=== PATIENT | male | born 1950 | race Two or more races ===

== ENCOUNTER 2024-07-10 12:33 | Inpatient (IN) | payer MEDICARE, SELFPAY ==
[2024-07-10] VITALS (34 sets, daily range): BP systolic 99–125; BP diastolic 60–79; PULSE 97–144; TEMP 36.7–37.2; O2SAT 96–100; BMI 23.8; BMI 24.1
--- NOTE | 2024-07-10 12:53 | XR_ITS ---
The [address] [address] Patient Name: SARAVANAN CLIFTON MRN: [id number] date: 1950 Sex: M Assigned Patient Location: ER Current Patient Location: ED.MAIN Accession/Order Number: [id number] Exam Date: 07/10/2024 13:10 Report Date: 07/10/2024 14:38 At the request of: TEODORO ECKERT Procedure: XR foot LT min 3V EXAM: XR foot LT min 3V HISTORY: Foot infection, rule out air in tissue COMPARISON: None. TECHNIQUE: AP, oblique, lateral view left foot. FINDINGS: Focal lucency which projects in the area of the second / third toe suggesting soft tissue gas. Not definitely confirmed well localized on the lateral view, exact location indeterminate. No adjacent bony abnormality or destruction or fracture. Lucencies within the plantar soft tissues from the metatarsal level the midfoot likely fat probable soft tissue gas not excluded.. Deformity fourth and fifth metatarsals likely related to old healed fractures, correlate for previous trauma. I do not see evidence of an acute fracture or healing fracture. Degenerative changes seen in the toes. Faint vascular soft tissue calcification distal lower leg posteriorly. XR/XR foot LT min 3V IMPRESSION: 1. Focal gas collection projects in the soft tissues near the second and third toes, exact location not clearly defined. Suggestive of soft tissue gas from infection. Could be confirmed with CT. 2. No adjacent bony erosion or destruction or evidence of osteomyelitis. No acute fracture seen. 3. Fourth and fifth metatarsal deformity likely old, correlate for history of previous trauma. 4. Plantar soft tissue lucencies, fat versus soft tissue gas.. Electronically authenticated by: ROBBIN MADRID Date: 07/10/2024 14:38
--- NOTE | 2024-07-10 12:53 | XR_ITS ---
The [address] [address] Patient Name: SARAVANAN CLIFTON MRN: [id number] date: 1950 Sex: M Assigned Patient Location: ER Current Patient Location: ER Accession/Order Number: [id number] Exam Date: 07/10/2024 13:10 Report Date: 07/10/2024 14:39 At the request of: TEODORO ECKERT Procedure: XR chest 1V EXAM: XR chest 1V HISTORY: SOB COMPARISON: None. TECHNIQUE: AP upright chest x-ray. FINDINGS: These is rotated. Basilar markings are prominent without focal consolidation. /Atelectasis/scarring versus pneumonitis. Cardiomediastinal contour is prominent accentuated by magnification. Costophrenic angles are not well-defined, cannot exclude small pleural effusion effusions. No pneumothorax. XR/XR chest 1V IMPRESSION: Prominent basilar markings, question atelectasis/scarring versus pneumonitis. Poorly defined costophrenic angles. Electronically authenticated by: ROBBIN MADRID Date: 07/10/2024 14:39
--- NOTE | 2024-07-10 12:53 | ECG_ITS ---
The [facility] Test Date: 2024-07-10 Pat Name: SARAVANAN CLIFTON Department: Room: - Gender: Male Delivery Consultant: : 1950 Requested By: Order Number: [id number] Reading MD: EMILY NAIR Measurements Intervals [place] Rate: 131 P: -[id number] OK: -[id number] QRS: 6 QRSD: 88 T: -8 QT: 322 QTc: 399 Interpretive Statements 66189 Atrial fibrillation with rapid ventricular response [id number] depression, probably digitalis effect 9150 abnormal ECG No previous ECG available for comparison Electronically Signed On 07-11-2024 7:42:29 EST by EMILY NAIR
--- NOTE | 2024-07-10 12:55 | ED_ITS ---
HPI HPI - General Adult General Chief complaint: Wound/Laceration Stated complaint: FOOT INFECTION SYMPTHOMS Time Seen by Provider: 07/10/24 12:44 Source: patient Mode of arrival: Wheelchair Limitations: no limitations History of Present Illness HPI narrative: 74-year-old male presents for a wound on his left foot. It has been draining and he saw operational assistant yesterday who told him to go to the hospital yesterday but he came today. He was started on doxycycline yesterday and has had 2 doses. He was also told that his heart rate was fast and he should have that checked out. He was found to be tachycardic and irregular. He has no history of atrial fibrillation. He reports having a heart catheterization last year that did not show any significant blockage. No fever or vomiting. Related Data Home Medications ?Medication ?Instructions ?Recorded ?Confirmed L.acidophilus-L.paracasei-B.bifidum-S.thermophl 1 cap PO DAILY 07/10/24 07/10/24 8 billion cell capsule (RisaQuad) doxycycline hyclate 100 mg capsule 100 mg PO BID 07/10/24 07/10/24 ferrous sulfate 325 mg (65 mg 325 mg PO DAILY 07/10/24 07/10/24 iron) tablet (Feosol) furosemide 40 mg tablet 40 mg PO DAILY 07/10/24 07/10/24 gabapentin 300 mg capsule 300 mg PO Q12H 07/10/24 07/10/24 oxycodone-acetaminophen 5 mg-325 1 tab PO Q8H 07/10/24 07/10/24 mg tablet pantoprazole 40 mg tablet,delayed 40 mg PO DAILY 07/10/24 07/10/24 release potassium 20 mg chewable tablet 10 mg PO DAILY 07/10/24 07/10/24 tramadol 50 mg tablet 50 mg PO DAILY 07/10/24 07/10/24 Allergies Allergy/AdvReac Type Severity Reaction Status Date / Time diazepam (From Valium) AdvReac Mild Anaphylaxis Verified 07/10/24 12:41 Opioid HPI Opioid Management Most Recent Opioid Data: Last Pain Scale 8 07/10/24 13:18 07/10/24 Last ED Pain Assessment 07/10/24 13:18 Review of Systems ROS Narrative A ten point review of systems is negative except as noted above. Exam Narrative Exam Narrative: Nurses note and vital signs reviewed and patient is not hypoxic. General: The patient appears well and in no apparent distress. Patient is resting comfortably on cart. Skin: Warm, dry, no pallor noted. There is no rash noted. Head: Normocephalic, atraumatic Eye: Normal conjunctiva, no drainage Ears, Nose, Mouth, and Throat: oral mucosa is moist. Nares patent. Cardiovascular: Tachycardic and irregular Respiratory: Patient is in no distress, no accessory muscle use, lungs are clear to auscultation, no wheezing, rales or rhonchi Back: non-tender GI: Soft and nontender Musculoskeletal: The left foot is examined. There is an open wound on the dorsum of the foot that is draining purulent material. Erythema is present also on the dorsum. He has several wounds on the plantar aspect of his foot as well, 1 on the distal plantar aspect and another at the base of his toes. Neurological: A&O, normal speech Psychiatric: Cooperative Constitutional Vital Signs, click to edit/add: Last Vital Signs Temp 98.3 F 07/10/24 12:41 Pulse 125 H 07/10/24 12:41 Resp 18 07/10/24 12:41 BP 117/72 07/10/24 12:41 Pulse Ox 98 07/10/24 13:17 O2 Del Method Room Air 07/10/24 13:17 Course Vital Signs Vital signs: Vital Signs Temperature 98.3 F 07/10/24 12:41 Pulse Rate 125 H 07/10/24 12:41 Respiratory Rate 18 07/10/24 12:41 Blood Pressure 117/72 07/10/24 12:41 Pulse Oximetry 97 07/10/24 12:41 Oxygen Delivery Method Room Air 07/10/24 12:41 Temperature 98.3 F 07/10/24 12:41 Pulse Rate 125 H 07/10/24 12:41 Respiratory Rate 18 07/10/24 12:41 Blood Pressure 117/72 07/10/24 12:41 Pulse Oximetry 98 07/10/24 13:17 Oxygen Delivery Method Room Air 07/10/24 13:17 Medical Decision Making MDM Narrative Medical decision making narrative: The patient presents with left foot cellulitis and draining wound on the dorsum of his left foot. Culture of that was taken as well as blood cultures and he was given IV Zosyn and vancomycin. X-ray report is pending from the radiologist. The patient also presents with new onset A-fib with RVR. He was given IV Cardizem bolus and placed on a drip and his heart rate has come down. He has no personal history of A-fib and is not on any blood thinners. He will be admitted to the ICU. Case also discussed with Dr. Ellis. Differential Diagnosis Differential Diagnosis: Cellulitis, abscess, osteomyelitis Lab Data Lab results reviewed: Yes I reviewed the patient's lab results Labs: Lab Results 07/10/24 Range/Units 13:05 WBC 20.7 H (4.0-11.0) 10^3/uL RBC 3.15 L (4.70-6.10) 10^6/uL Hgb 8.8 L (14.0-18.0) g/dL Hct 27.9 L (42.0-54.0) % MCV 88.6 (80.0-94.0) fL MCH 27.9 (25.9-34.0) pg MCHC 31.5 (29.9-35.2) g/dL RDW 17.8 H (11.0-15.0) % Plt Count 706 H (150-450) 10^3/uL MPV 10.4 (9.5-13.5) fL Seg Neuts % (Manual) 90.0 H (43.0-75.0) Lymphocytes % (Manual) 3.0 L (20.5-60.0) % Monocytes % (Manual) 4.0 (1.7-12.0) % Eosinophils % (Manual) 2.0 (0.9-7.0) % Basophils % (Manual) 1.0 (0.2-2.0) % Neutrophils # (Manual) 18.63 H (1.4-6.5) 10^3/uL Lymphocytes # (Manual) 0.62 L (1.20-3.80) 10^3/uL Monocytes # (Manual) 0.82 H (0.30-0.80) 10^3/uL Eosinophils # (Manual) 0.41 (0.00-0.70) 10^3/uL Basophils # (Manual) 0.20 H (0.00-0.10) 10^3/uL Hypochromasia 2+ Anisocytosis 1+ Ovalocytes 1+ [place] Cells 1+ Schistocytes 1+ ESR 58 H (<=20) mm/hr Sodium 137 (136-145) mmol/L Potassium 3.7 (3.5-5.1) mmol/L Chloride 101 (98-107) mmol/L Carbon Dioxide 25.3 (21.0-32.0) mmol/L Anion Gap 14.4 BUN 12.0 (7.0-18.0) mg/dL Creatinine 1.06 (0.70-1.30) mg/dL Est GFR ( Amer) >60 (>=60 mL/min/1.73m^2) Est GFR (Non-Af Amer) >60 (>=60 mL/min/1.73m^2) BUN/Creatinine Ratio 11.3 Glucose 118 H (74-106) mg/dL Calcium 8.1 L (8.5-10.1) mg/dL Troponin I High Sens 9.3 (4.0-76.1) pg/mL C-Reactive Protein 8.06 H (<=0.50) mg/dL Imaging Data Foot x-ray: My impression: No definite osteomyelitis or air in the soft tissue ECG Data Attestation: I personally reviewed and interpreted this ECG as follows: (EKG on my interpretation shows atrial fibrillation with RVR) Critical Care Time Critical Care Time Critical Care Time: Yes Total Critical Care Time: 35 Attestation: Due to the high probability of sudden and clinically significant deterioration in the patient's condition he/she required the highest level of my preparedness to intervene urgently I provided critical care time including documentation time, medication orders and management, reevaluation, vital sign assessment, ordering and reviewing of lab tests, ordering and reviewing of x-ray studies, and admission orders. Aggregate critical care time is 35 minutes including only time during which I was engaged in work directly related to his/her care and did not include time spent treating other patients simultaneously. Discharge Plan Discharge Chief Complaint: Wound/Laceration Clinical Impression: Cellulitis of foot, left Patient Disposition: Admitted As Inpatient Time of Disposition Decision: 14:31 Condition: Good
[2024-07-10 13:20] LABS: Hematocrit 27.9 % (42.0-54.0); Hemoglobin 8.8 g/dL (14.0-18.0); Mean Corpuscular HGB Conc 31.5 g/dL (29.9-35.2); Mean Corpuscular Hemoglobin 27.9 pg (25.9-34.0); Mean Corpuscular Volume 88.6 fL (80.0-94.0); Mean Platelet Volume 10.4 fL (9.5-13.5); Platelet Count 706 10^3/uL (150-450); Red Blood Count 3.15 10^6/uL (4.70-6.10); Red Cell Distribution Width 17.8 % (11.0-15.0); White Blood Count 20.7 10^3/uL (4.0-11.0)
[2024-07-10 13:39] LABS: Erythrocyte Sedimentation Rate 58 mm/hr (<=20)
[2024-07-10 13:41] LABS: Anion Gap 14.4; BUN Creatinine Ratio 11.3; C Reactive Protein 8.06 mg/dL (<=0.50); Calcium 8.1 mg/dL (8.5-10.1); Carbon Dioxide 25.3 mmol/L (21.0-32.0); Chloride 101 mmol/L (98-107); Estimated GFR (African America >60 (>=60 mL/min/1.73m^2); Estimated GFR (Non-African Ame >60 (>=60 mL/min/1.73m^2); Glucose 118 mg/dL (74-106); Potassium 3.7 mmol/L (3.5-5.1); Sodium 137 mmol/L (136-145); Troponin I High Sensitivity 9.3 pg/mL (4.0-76.1)
[2024-07-10] MEDS: DILTIAZEM HCL 25 MG/5 ML VIAL 10 MG IV (13:49)
[2024-07-10] MEDS: PIPERACILLIN SODIUM/TAZOBACTAM 3.375 GM in 0.9 % SODIUM CHLORIDE 50 ML IV (14:00)
[2024-07-10 14:04] LABS: Eosinophils Absolute Manual 0.41 10^3/uL (0.00-0.70); Lymphocytes Absolute Manual 0.62 10^3/uL (1.20-3.80); Monocytes Absolute Manual 0.82 10^3/uL (0.30-0.80); Segmented Neut Absolute Manual 18.63 10^3/uL (1.4-6.5)
[2024-07-10 14:05] LABS: Anisocytosis 1+; Hypochromasia 2+
[2024-07-10 14:06] LABS: Burr Cells 1+; Ovalocytes 1+; Schistocytes 1+
[2024-07-10] MEDS: VANCOMYCIN HCL 1,500 MG in 0.9 % SODIUM CHLORIDE 500 ML 250 MG IV (14:25)
[2024-07-10] MEDS: dilTIAZem HCL 125 MG in 0.9 % SODIUM CHLORIDE 100 ML IV (14:32)
--- NOTE | 2024-07-10 15:24 | CT_ITS ---
The [address] [address] Patient Name: SARAVANAN CLIFTON MRN: [id number] date: 1950 Sex: M Assigned Patient Location: ER Current Patient Location: ER Accession/Order Number: [id number] Exam Date: 07/10/2024 15:35 Report Date: 07/10/2024 16:27 At the request of: ADILENE CASTELLON Procedure: CT foot LT wo con EXAM: CT foot LT wo con HISTORY: Gas seen on left foot X-ray COMPARISON: Left foot x-ray 07/10/2024 TECHNIQUE: CT left foot noncontrast. Axial scans with reformatted coronal sagittal images. Individualized radiation dose reduction used for this exam FINDINGS: There are punctate gas collection within the plantar soft tissues near the second and third toes measuring several millimeters. Punctate gas in the superficial tissues dorsal aspect in the area of the fourth and fifth those is equivocal. The large gas collection on plain films is not confirmed to be within the soft tissues on CT. That lucency could be incidental external gas between the toes. There is no subcutaneous gas extending from the metatarsals to the midfoot as question on x-ray.. There is diffuse edema. Fourth and fifth metatarsal deformity appears old consistent with prior trauma and healed fractures. No bony erosion, periosteal reaction or other evidence of osteomyelitis. No fracture or healing subacute fracture seen. Degenerative changes in the toes. CT/CT foot LT wo con IMPRESSION: 1. There are punctate several millimeter gas collections in the soft tissues near the second and third toes not well demonstrated on plain films. The larger gas collection seen in this area plain films is not confirmed to be within the subcutaneous tissues on CT. No subcutaneous gas in the plantar soft tissues as questioned on x-ray. 2. Diffuse edema. 3. Old trauma fourth and fifth metatarsals. 4. No evidence of osteomyelitis, healing fracture or other acute bony abnormality. Electronically authenticated by: ROBBIN MADRID Date: 07/10/2024 16:27
--- NOTE | 2024-07-10 15:28 | PM.HP ---
HPI H&P: HPI History of Present Illness Chief complaint: FOOT INFECTION SYMPTHOMS Narrative: Patient is a 74 y.o white male with past medical history of Peripheral Neuropathy who has underwent several toe amputations of the right foot (last june 01, 2024 at [facility], Dr. Whalen) and has wound nurse that comes to the house, iron deficiency anemia (suppose to have a bone marrow biopsy done by Dr. 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 He apparently seen a blanchard grinder operator, Dr. Chery yesterday, and was started on Doxycycline and was instructed to go to the ER for IV antibiotics by his wound nurse today. He has no known history of diabetes. He also notes history of cardiomyopathy and pulmonary edema, had a heart cath 1 year ago that was normal. Upon presentation to the ER, his Heart Rate was also in the 130's and was found to be in Afib with RVR. He was given Cardizem bolus and was started on Cardizem drip. He has no prior history of Afib. ER findings: Left foot X-ray shows focal gas collection in the soft tissues Near the 2nd and 3rd toes, WBC's 20.7, Hb 8.8, Platelets 706, ESR 58, CRP 8.06, Trop 9.3 and Cr 1.06; patient was given Zosyn and Vancomycin for left foot cellulitis with ulceration/abscess and given Cardizem bolus for new onset Afib with RVR Patient also hypotensive with BP, 99/63, HR 125, 98% on RA, Lactate 1.6 Opioid HPI Opioid Management Most Recent Pain and Opioid Data: Last Pain Scale 5 07/10/24 18:00 07/10/24 Last Pain Assessment 07/10/24 18:00 Last ED Pain Assessment 07/10/24 13:18 Last ORT Total Score 0 07/10/24 17:28 07/10/24 Last ORT Risk Category Low Risk 07/10/24 17:28 07/10/24 Review of Systems ROS Narrative ROS: a complete review of systems were reviewed with patient and are positive as below or listed in History of Chief Complaint. General: fever, chills, no night sweats Head: no headache, trauma, visual changes, nausea or vomiting Skin: left foot sore, ulcer and odor, right foot chronic wounds with history of amputations Eyes: no blurriness of vision Ears: no reported hearing loss, vertigo, earache, or tinnitus Throat: no sore throat, hoarseness, swelling of neck, or tongue pain Heart: no chest pain Lungs: no shortness of breath or cough GI: no diarrhea or vomiting/nausea Urinary: no urinary urgency, frequency or pain Neuro: numbness or tingling bilateral feet HEM: no bleeding issues or bruising ENDO: no thyroid problems Psych: no anxiety or depression [facility] Medical History (Updated 07/10/24 @ 17:07 by Florence Angel RN) Hip fracture ?S72.009A - Fracture of unspecified part of neck of unspecified femur, initial encounter for closed fracture (ICD-10) Pulmonary hypertension ?I27.20 - Pulmonary hypertension, unspecified (ICD-10) Iron deficiency anemia ?D50.9 - Iron deficiency anemia, unspecified (ICD-10) GERD without esophagitis ?K21.9 - Gastro-esophageal reflux disease without esophagitis (ICD-10) Peripheral neuropathy ?G62.9 - Polyneuropathy, unspecified (ICD-10) Social History Highest level of school completed/degree received: Associate degree: occupational, technical, vocational program Little interest or pleasure in doing things: not at all Feeling down, depressed, or hopeless: not at all Meds Home Medications and Allergies Home Medications ?Medication ?Instructions ?Recorded ?Confirmed ?Type L.acidophilus-L.paracasei-B.bifidum-S.thermophl 1 cap PO DAILY 07/10/24 07/10/24 History 8 billion cell capsule (RisaQuad) doxycycline hyclate 100 mg capsule 100 mg PO BID 07/10/24 07/10/24 History ferrous sulfate 325 mg (65 mg 325 mg PO DAILY 07/10/24 07/10/24 History iron) tablet (Feosol) furosemide 40 mg tablet 40 mg PO Q12H 07/10/24 07/10/24 History gabapentin 300 mg capsule 300 mg PO Q12H 07/10/24 07/10/24 History oxycodone-acetaminophen 5 mg-325 1 tab PO Q8H 07/10/24 07/10/24 History mg tablet pantoprazole 40 mg tablet,delayed 40 mg PO DAILY 07/10/24 07/10/24 History release potassium 20 mg chewable tablet 10 mg PO DAILY 07/10/24 07/10/24 History tramadol 50 mg tablet 50 mg PO DAILY 07/10/24 07/10/24 History Allergies Allergy/AdvReac Type Severity Reaction Status Date / Time diazepam (From Valium) AdvReac Mild Anaphylaxis Verified 07/10/24 12:41 Exam Narrative Exam Narrative: General: Patient is alert, and oriented to person, place and time with normal affect, proper hygiene Skin: right foot with dorsal surface ulceration behind the 2nd and 3rd toe with central necrosis, dorsum of the foot shows also ulceration behind 2nd and 3rd toes open area/ulceration; erythema of the leg up to just below the knee; multiple ecchymosis on the forearms Head: atraumatic, acephalic Eyes: PERRLA, no nystagmus present, conjunctiva clear, no scleral icterus Ears: normal gross auditory acuity Nose: symmetric, no discharge, no maxillary or frontal sinus tenderness Mouth/Throat: no erythema, exudate, or tonsillar enlargement, normal dentition Neck: no masses palpated, normal thyroid Heart: irregular rate and rhythm, no murmurs/rubs/gallops Lungs: no audible wheezes, crackles and normal breath sounds all lung musa Abdomen: Normal audible bowel sounds, mild distension, No palpable masses, no organomegaly, no rebound/guarding/ or rigidity; umbilical hernia reducible Musculoskeletal: muscle atrophy noted, ROM is limited due to being in hospital bed Neuro: CN II-X grossly intact Constitutional Vital Signs, click to edit/add: Last Vital Signs Temp 98.3 F 07/10/24 12:41 Pulse 125 H 07/10/24 12:41 Resp 18 07/10/24 12:41 BP 99/63 07/10/24 14:32 Pulse Ox 98 07/10/24 13:17 O2 Del Method Room Air 07/10/24 13:17 Results Labs Labs: Short CBC 07/10/24 Range/Units 13:05 WBC 20.7 H (4.0-11.0) 10^3/uL Hgb 8.8 L (14.0-18.0) g/dL Hct 27.9 L (42.0-54.0) % Plt Count 706 H (150-450) 10^3/uL BMP 07/10/24 13:05 Sodium 137 Potassium 3.7 Chloride 101 Carbon Dioxide 25.3 BUN 12.0 Creatinine 1.06 Glucose 118 H Calcium 8.1 L Assessment and Plan Assessment and Plan (1) Sepsis: Assessment and Plan: Patient with Tachycardia, hypotension, leukocytosis, with known area of infection (left foot) but lactate normal, SIRS criteria. High suspicion of sepsis that is causing new onset Afib with RVR. Treat infection with Vancomycin and Zosyn until cultures result. Blood and urine cultures also obtained. Qualifiers: Sepsis acute organ dysfunction status: without acute organ dysfunction Sepsis type: sepsis due to unspecified organism Qualified Code(s): A41.9 - Sepsis, unspecified organism (2) Cellulitis of foot, left: Assessment and Plan: start antibiotics, X-ray concerning for possible gas formation, will check CT of the foot to rule in/out gas gangrene, consult to Podiatry. Patient may need transferred acutely if needing Emergent surgery. elevated ESR, CRP and WBC's, start Vancomycin and Zosyn. (3) Foot ulcer with necrosis of muscle: Assessment and Plan: see #2, sounds like acute on chronic in nature Qualifiers: Laterality: left Qualified Code(s): L97.523 - Non-pressure chronic ulcer of other part of left foot with necrosis of muscle (4) New onset a-fib: Assessment and Plan: most likely secondary to sepsis and foot infection, could also be due to doxycycline? or history of recent alcohol abstinence. Troponin negative, continue to trend, check proBNP, ordered ECHO but will not get over the weekend, Chest X-ray showed no acute pulmonary edema, but patient with heart history. Continue daily lasix. Given Cardizem bolus, Will continue with Cardizem drip and started on Therapeutic Lovenox at 85mg IM BID. Normal renal function. Will check magnesium, TSH, lipids, ha1c (5) Peripheral neuropathy: Assessment and Plan: continue gabapentin, oxycodone and tramadol as needed Qualifiers: Peripheral neuropathy type: polyneuropathy, unspecified Qualified Code(s): G62.9 - Polyneuropathy, unspecified (6) GERD without esophagitis: Assessment and Plan: continue protonix (7) Iron deficiency anemia: Assessment and Plan: hemoglobin is 8.8, Will check Coags, will consider type and Cross as surgery may be in his future Qualifiers: Iron deficiency anemia type: unspecified iron deficiency Qualified Code(s): D50.9 - Iron deficiency anemia, unspecified Plan Patient is a full code Therapeutic Lovenox Patient is inpatient and expected to cross 2 midnights for hospital necessary care to treat his Sepsis and foot infection. May need transfer to acute Care facility if Gas Gangrene present on CT for emergent surgery.
[2024-07-10 15:41] LABS: Lactate/Lactic Acid 1.6 mmol/L (0.4-2.0)
[2024-07-10 16:41] LABS: Magnesium 1.5 mg/dL (1.8-2.4); TSH W/ REFLEX FT4 4.518 uIU/mL (0.358-3.740)
[2024-07-10 17:08] LABS: Free T4 1.37 ng/dL (0.76-1.46)
[2024-07-10] MEDS: ENOXAPARIN SODIUM 100 MG/ML SYRINGE 90 MG SUBQ (18:19)
[2024-07-10] MEDS: OXYCODONE HCL/ACETAMINOPHEN 5MG/325MG 1 TAB PO (19:53)
[2024-07-10] MEDS: GABAPENTIN 300 MG CAPSULE PO (20:25)
[2024-07-10] MEDS: MAGNESIUM SULFATE IN WATER 4 GM/100 ML PIGGYBACK IV (20:25)
[2024-07-11] VITALS (92 sets, daily range): BP systolic 101–123; BP diastolic 48–79; PULSE 70–185; TEMP 36.5–37.4; O2SAT 91–95
[2024-07-11] MEDS: dilTIAZem HCL 125 MG in 0.9 % SODIUM CHLORIDE 100 ML 10 MG IV (05:45)
[2024-07-11 05:50] LABS: Basophils Absolute Auto 0.2 10^3/uL (0.0-0.1); Basophils Percent Auto 1.1 % (0.2-2.0); Eosinophils Absolute Auto 0.3 10^3/uL (0.0-0.7); Eosinophils Percent Auto 2.3 % (0.9-7.0); Hemoglobin 7.5 g/dL (14.0-18.0); Immature Granulocytes Abs Auto 0.24 10^3/uL (0.00-0.03); Immature Granulocytes Pct Auto 1.8 % (0.0-0.5); Lymphocytes Absolute Auto 0.6 10^3/uL (1.2-3.8); Lymphocytes Percent Auto 4.8 % (20.5-60.0); Mean Corpuscular HGB Conc 32.6 g/dL (29.9-35.2); Mean Corpuscular Hemoglobin 27.8 pg (25.9-34.0); Mean Corpuscular Volume 85.2 fL (80.0-94.0); Mean Platelet Volume 9.5 fL (9.5-13.5); Monocytes Percent Auto 7.3 % (1.7-12.0); Neutrophils Absolute Auto 10.9 10^3/uL (1.4-6.5); Neutrophils Percent Auto 82.7 % (43.0-75.0); Platelet Count 657 10^3/uL (150-450); Red Cell Distribution Width 17.6 % (11.0-15.0); White Blood Count 13.2 10^3/uL (4.0-11.0)
[2024-07-11] MEDS: ENOXAPARIN SODIUM 100 MG/ML SYRINGE 90 MG SUBQ ×2 (05:55→17:25)
[2024-07-11] MEDS: OMEPRAZOLE 40 MG CAPSULE.DR PO (05:55)
[2024-07-11 06:01] LABS: Magnesium 2.2 mg/dL (1.8-2.4)
[2024-07-11 06:06] LABS: Estimated Average Glucose 100 mg/dL; Glycohemoglobin A1C 5.1 % (4.5-6.2)
[2024-07-11 06:08] LABS: Alanine Aminotransferase 16 U/L (16-63); Albumin Globulin Ratio 0.6; Albumin Level 2.2 g/dL (3.4-5.0); Alkaline Phosphatase 114 U/L (46-116); Anion Gap 12.5; Aspartate Amino Transferase 27 U/L (15-37); BUN Creatinine Ratio 11.1; Calcium 7.9 mg/dL (8.5-10.1); Carbon Dioxide 24.7 mmol/L (21.0-32.0); Chloride 105 mmol/L (98-107); Estimated GFR (African America >60 (>=60 mL/min/1.73m^2); Estimated GFR (Non-African Ame >60 (>=60 mL/min/1.73m^2); Globulin 3.7 g/dL; Glucose 100 mg/dL (74-106); Potassium 3.2 mmol/L (3.5-5.1); Sodium 139 mmol/L (136-145); Total Protein 5.9 g/dL (6.4-8.2)
[2024-07-11 06:10] LABS: Chol HDL Ratio 3.2; Cholesterol 76 mg/dL (<=200); HDL Cholesterol 24 mg/dL (40-60); Triglycerides 50 mg/dL (<=150); Troponin I High Sensitivity <4.0 pg/mL (4.0-76.1)
[2024-07-11 06:12] LABS: INR 1.56; Prothrombin Time 15.8 sec (9.0-11.6)
[2024-07-11 06:19] LABS: Partial Thromboplastin Time 42.5 sec (22.3-36.2)
--- NOTE | 2024-07-11 07:28 | P.PN_ITS ---
Progress Note: Subjective Subjective Interval history: Patient reports he had a good night's rest. He denies any fevers or chills. No chest pain. Patient's HR still >100 and on Cardizem drip. Podiatry seen him this morning. Recommending amputation of the 3rd toe. Given his new onset Afib and need for further cardiac work up I have discussed case with Dr. Ellis, patient and feel that's it's patient's best interest for transfer to [facility] where patient sees all his consultants including his prior yard coupler who has performed all his other surgeries and also he will need cardiology consult. I have also explained patient's Hemoglobin dropped to 7.5, He is amendable to transfusion. He has had one prior without issues. I will transfuse with 1 unit PRBC's Exam Narrative Exam Narrative: General: Patient is alert, and oriented to person, place and time with normal affect, proper hygiene Skin: right foot with dorsal surface ulceration behind the 2nd and 3rd toe with central necrosis, dorsum of the foot shows also ulceration behind 2nd and 3rd toes open area/ulceration; erythema of the leg up to just below the knee; multiple ecchymosis on the forearms Head: atraumatic, acephalic Eyes: PERRLA, no nystagmus present, conjunctiva clear, no scleral icterus Ears: normal gross auditory acuity Nose: symmetric, no discharge, no maxillary or frontal sinus tenderness Mouth/Throat: no erythema, exudate, or tonsillar enlargement, normal dentition Neck: no masses palpated, normal thyroid Heart: irregular rate and rhythm, no murmurs/rubs/gallops Lungs: no audible wheezes, crackles and normal breath sounds all lung musa Abdomen: Normal audible bowel sounds, mild distension, No palpable masses, no organomegaly, no rebound/guarding/ or rigidity; umbilical hernia reducible Musculoskeletal: muscle atrophy noted, ROM is limited due to being in hospital bed Neuro: CN II-X grossly intact Constitutional Vital Signs, click to edit/add: Last Vital Signs Temp 98.4 F 07/11/24 04:00 Pulse 115 H 07/11/24 06:00 Resp 16 07/11/24 04:00 BP 113/59 07/11/24 05:45 Pulse Ox 93 L 07/11/24 04:00 O2 Del Method Room Air 07/10/24 17:28 Progress Note: Objective Labs Labs: Short CBC 07/10/24 07/11/24 Range/Units 13:05 05:39 WBC 20.7 H 13.2 H (4.0-11.0) 10^3/uL Hgb 8.8 L 7.5 L (14.0-18.0) g/dL Hct 27.9 L 23.0 L* (42.0-54.0) % Plt Count 706 H 657 H (150-450) 10^3/uL BMP 07/10/24 07/11/24 13:05 05:39 Sodium 137 139 Potassium 3.7 3.2 L Chloride 101 105 Carbon Dioxide 25.3 24.7 BUN 12.0 11.0 Creatinine 1.06 0.99 Glucose 118 H 100 Calcium 8.1 L 7.9 L Liver Function 07/11/24 Range/Units 05:39 Total Bilirubin 1.0 (0.2-1.0) mg/dL AST 27 (15-37) U/L ALT 16 (16-63) U/L Alkaline Phosphatase 114 (46-116) U/L Albumin 2.2 L (3.4-5.0) g/dL Progress Note: A&P Assessment and Plan (1) Sepsis: Assessment and Plan: Patient with Tachycardia, hypotension, leukocytosis, with known area of infectio n (left foot) but lactate normal, does meet SIRS criteria. High suspicion of sepsis/foot infection that is causing new onset Afib with RVR but have to rule out other causes. Treat infection with Vancomycin and Zosyn until wound cultures result. Blood and urine cultures also obtained. Qualifiers: Sepsis acute organ dysfunction status: without acute organ dysfunction Sepsis type: sepsis due to unspecified organism Qualified Code(s): A41.9 - Sepsis, unspecified organism (2) Cellulitis of foot, left: Assessment and Plan: contiue antibiotics, X-ray concerning for possible gas formation, CT of the foot showed some gas formation overlying the area of ulceration, consult to Podiatry for further plan of care. Patient may need transferred acutely if needing Emergent surgery over weekend. elevated ESR, CRP and WBC's, continue Vancomycin and Zosyn (3) Foot ulcer with necrosis of muscle: Assessment and Plan: see #2, sounds acute on chronic in nature as patient was being seen at home by wound nurse and following with closely with [facility], Dr. Whalen Qualifiers: Laterality: left Qualified Code(s): L97.523 - Non-pressure chronic ulcer of other part of left foot with necrosis of muscle (4) New onset a-fib: Assessment and Plan: most likely secondary to sepsis and foot infection, could also be due to recent alcohol abstinence, undiagnosed hypothyroidism or acute symptomatic anemia. Troponins negative, proBNP elevated, ordered ECHO but will not get over the weekend, will be tomorrow, Cards consult tomorrow, start PO coreg and hope to start PO cardizem and wean of drip today, Chest X-ray showed no acute pulmonary edema, but patient with heart history, right sided heart failure and pulmonary hypertension per patient. Continue daily lasix 40mg BID, monitor strict I&O's. Given Cardizem bolus, Will continue with Cardizem drip and started on Therapeutic Lovenox at 85mg IM BID. Normal renal function. (5) Peripheral neuropathy: Assessment and Plan: continue gabapentin, oxycodone and tramadol as needed Qualifiers: Peripheral neuropathy type: polyneuropathy, unspecified Qualified Code(s): G62.9 - Polyneuropathy, unspecified (6) GERD without esophagitis: Assessment and Plan: continue protonix (7) Iron deficiency anemia: Assessment and Plan: hemoglobin is 7.5, will consider 1 unit PRBC's today, may be contributing to Afib, type and Cross done Qualifiers: Iron deficiency anemia type: unspecified iron deficiency Qualified Code(s): D50.9 - Iron deficiency anemia, unspecified (8) Hypokalemia: Assessment and Plan: increase Klor Con to 20mEQ BID (9) Hypothyroidism (acquired): Assessment and Plan: start levothyroxine 25mcg daily (10) Chronic right-sided CHF (congestive heart failure): Assessment and Plan: see above. does not appear fluid overloaded. continue lasix Plan Patient is a full code Therapeutic Lovenox podiatry consult today, start Coreg, hope to wean of drip, transfuse 1 unit PRBC's, possible [facility] transfer
[2024-07-11] MEDS: OXYCODONE HCL/ACETAMINOPHEN 5MG/325MG 1 TAB PO ×2 (07:36→16:04)
[2024-07-11] MEDS: LEVOTHYROXINE SODIUM 25 MCG TABLET PO (09:13)
[2024-07-11] MEDS: FUROSEMIDE 40 MG TABLET PO (09:13)
[2024-07-11] MEDS: POTASSIUM CHLORIDE 10 MEQ ER TABLET 20 MEQ PO (09:13)
[2024-07-11] MEDS: GABAPENTIN 300 MG CAPSULE PO (09:13)
[2024-07-11] MEDS: CARVEDILOL 6.25 MG TABLET PO (09:13)
[2024-07-11] MEDS: FERROUS SULFATE 325 MG TABLET PO (09:13)
--- NOTE | 2024-07-11 11:06 | P.CN_ITS ---
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 He relates that he did have a similar issue on his right foot which required amputation in May. He has been under the care of of Dr Martinez and Dr Chery for his feet and was seen by Dr Chery on Friday. it was recommended he present to the ER for further work-up and (who is at bedside) stated we just couldn't imagine sitting in the [facility] ER for 8 hours so we decided to come here despite all of his treating physicians being in [place]. Upon presentation to [facility], he was found to be in A-fib with RVR, pulmonary edema, hypokalemia, anemic with significant leukocytosis and elevation in inflammatory markers. X-rays demonstrated intact cortices with no evidence of acute osteomyelitis. Apparent air in the soft tissues on x-ray was further evaluated with CT scan and seem to correlate with the ulcerations and there was no subcutaneous gas which extended proximally to the midfoot. Patient was started on broad-spectrum antibiotics (vancomycin/Zosyn) and admitted to the ICU under the hospitalist care. Blood and wound cultures are pending. I was consulted for possible surgical management of the patient's left foot infection. cc:: CC: Keisha Small DO Review of Systems ROS Status of ROS 10 or more systems reviewed and unremark able except as noted in history and below Gastrointestinal Reports: nausea Integumentary/Breast Reports: redness, skin tenderness and sores [facility] Medical History (Updated 07/11/24 @ 11:23 by Nimesh Ellis DPM) Chronic right-sided CHF (congestive heart failure) ?I50.812 - Chronic right heart failure (ICD-10) Hip fracture ?S72.009A - Fracture of unspecified part of neck of unspecified femur, initial encounter for closed fracture (ICD-10) Pulmonary hypertension ?I27.20 - Pulmonary hypertension, unspecified (ICD-10) Iron deficiency anemia ?D50.9 - Iron deficiency anemia, unspecified (ICD-10) GERD without esophagitis ?K21.9 - Gastro-esophageal reflux disease without esophagitis (ICD-10) Peripheral neuropathy ?G62.9 - Polyneuropathy, unspecified (ICD-10) Social History Highest level of school completed/degree received: Associate degree: occupational, technical, vocational program Little interest or pleasure in doing things: not at all Feeling down, depressed, or hopeless: not at all Meds Home Medications and Allergies Home Medications ?Medication ?Instructions ?Recorded ?Confirmed ?Type L.acidophilus-L.paracasei-B.bifidum-S.thermophl 1 cap PO DAILY 07/10/24 07/10/24 History 8 billion cell capsule (RisaQuad) doxycycline hyclate 100 mg capsule 100 mg PO BID 07/10/24 07/10/24 History ferrous sulfate 325 mg (65 mg 325 mg PO DAILY 07/10/24 07/10/24 History iron) tablet (Feosol) furosemide 40 mg tablet 40 mg PO Q12H 07/10/24 07/10/24 History gabapentin 300 mg capsule 300 mg PO Q12H 07/10/24 07/10/24 History oxycodone-acetaminophen 5 mg-325 1 tab PO Q8H 07/10/24 07/10/24 History mg tablet pantoprazole 40 mg tablet,delayed 40 mg PO DAILY 07/10/24 07/10/24 History release potassium 20 mg chewable tablet 10 mg PO DAILY 07/10/24 07/10/24 History tramadol 50 mg tablet 50 mg PO DAILY 07/10/24 07/10/24 History Allergies Allergy/AdvReac Type Severity Reaction Status Date / Time diazepam (From Valium) AdvReac Mild Anaphylaxis Verified 07/10/24 12:41 Exam Narrative Exam Narrative: Skin: Ulceration noted at the plantar aspect of the third toe which probes deeply and seems to communicate to ulcerations noted plantar and dorsal aspect of third metatarsal. Ulcers probe to the base of the third toe proximal phalanx and to the third metatarsal. There is scant purulence noted at the base of the third toe but no fluctuance with deeper palpation to the forefoot and midfoot. Neuro: Absent protective and vibratory sensation Vascular: Pedal pulses are palpable. Absent digital hair. Erythema noted around the wounds Musculoskeletal: Left foot has contractures of all 5 toes with dorsal dislocation of the third toe and plantar prominence of the third metatarsal head which corresponds to the ulceration. Forefoot deformity is nonreducible. Ankle joint dorsiflexion is to neutral but not past Constitutional Vital Signs, click to edit/add: Last Vital Signs Temp 99.4 F 07/11/24 07:50 Pulse 127 H 07/11/24 07:50 Resp 18 07/11/24 07:50 BP 119/63 07/11/24 07:50 Pulse Ox 92 L 07/11/24 07:50 O2 Del Method Room Air 07/10/24 17:28 Results Labs Labs: Short CBC 07/10/24 07/11/24 Range/Units 13:05 05:39 WBC 20.7 H 13.2 H (4.0-11.0) 10^3/uL Hgb 8.8 L 7.5 L (14.0-18.0) g/dL Hct 27.9 L 23.0 L* (42.0-54.0) % Plt Count 706 H 657 H (150-450) 10^3/uL BMP 07/10/24 07/11/24 13:05 05:39 Sodium 137 139 Potassium 3.7 3.2 L Chloride 101 105 Carbon Dioxide 25.3 24.7 BUN 12.0 11.0 Creatinine 1.06 0.99 Glucose 118 H 100 Calcium 8.1 L 7.9 L Liver Function 07/11/24 Range/Units 05:39 Total Bilirubin 1.0 (0.2-1.0) mg/dL AST 27 (15-37) U/L ALT 16 (16-63) U/L Alkaline Phosphatase 114 (46-116) U/L Albumin 2.2 L (3.4-5.0) g/dL Assessment and Plan Assessment and Plan (1) Sepsis: Qualifiers: Sepsis acute organ dysfunction status: without acute organ dysfunction Sepsis type: sepsis due to unspecified organism Qualified Code(s): A41.9 - Sepsis, unspecified organism (2) Cellulitis of foot, left: (3) Foot ulcer with necrosis of muscle: Qualifiers: Laterality: left Qualified Code(s): L97.523 - Non-pressure chronic ulcer of other part of left foot with necrosis of muscle (4) New onset a-fib: (5) Hypokalemia: (6) Hypothyroidism (acquired): (7) Acute osteomyelitis of left foot: Plan Patient seen and evaluated at bedside. Patient is extremely medically complicated with multiple acute and chronic issues which places him at high risk for serious complication including loss of limb or life. I explained that his combination of neuropathy with deformity has likely led to the development of this ulceration and his neuropathy with his medical comorbidities have prevented his ability to heal the wound. Now with a serious infection patient will require at minimum amputation of his left third toe which given his medical status would likely need to be staged. Given his medical status and pending cardiology workup surgical intervention tomorrow may have to be performed under local however patient expresses concern that he much prefers to be sedated. I told him that I would discuss with anesthesia but am not optimistic. I also explained that given the current situation the [facility] in no surgery is to be performed on the weekend. I will make him n.p.o. after midnight but if it is determined that no sedation or general anesthesia may be safely used and he has to undergo surgery under only local anesthesia then he may eat. Call with updates.
[2024-07-11] MEDS: PIPERACILLIN SODIUM/TAZOBACTAM 3.375 GM in 0.9 % SODIUM CHLORIDE 50 ML IV (13:39)
[2024-07-11 13:52] LABS: Bilirubin Urine NEGATIVE (NEGATIVE); Blood Urine TRACE-I (NEGATIVE); Clarity Urine CLEAR (CLEAR); Color Urine YELLOW (YELLOW); Glucose Urine UA NEGATIVE (NEGATIVE); Ketones Urine NEGATIVE (NEGATIVE); Leukocyte Esterase Urine NEGATIVE (NEGATIVE); Nitrite Urine POSITIVE (NEGATIVE); Protein Urine NEGATIVE (NEG/TRACE); Urobilinogen Urine 0.2 EU/dL (0.2-1.0); pH Urine 5.5 (5.0-9.0)
[2024-07-11 14:05] LABS: Bacteria Urine SMALL #/HPF (NONE SEEN); Cast Seen? SEEN #/LPF (NONE SEEN); Crystals Seen? None Seen #/HPF (None Seen); Hyaline Casts Urine RARE; Mucus Urine NONE SEEN (NONE SEEN); RBC Urine 0-2 #/HPF (0-2); Squamous Epithelial Cell Urine RARE #/LPF (NONE/RARE); Urine Culture Indicated YES; WBC Urine 0-2 #/HPF (NONE SEEN)
[2024-07-11] MEDS: DILTIAZEM HCL 300 MG CAP.ER.24H PO (14:18)
[2024-07-11 14:58] LABS: Hematocrit 25.4 % (42.0-54.0); Hemoglobin 8.4 g/dL (14.0-18.0)
[2024-07-11] MEDS: VANCOMYCIN HCL 1,250 MG in 0.9 % SODIUM CHLORIDE 250 ML 166.667 MG IV (17:25)
[2024-07-11] MEDS: ACETAMINOPHEN 500 MG TABLET 1000 MG PO (19:28)
--- NOTE | 2024-07-12 07:51 | P.DS_ITS ---
DS: Providers Provider Date of admission: 07/10/24 17:14 Primary care physician: Non-Staff PhysicianMD Attending physician on admission: Keisha Small Consults: 07/10/24 15:18 Consult to Podiatry Routine Consulting Provider: Nimesh Ellis Reason for consultation: left foot infection Has provider been notified: Yes 07/11/24 07:38 Consult to Cardiology Routine Reason for consultation: new onset Afib with RVR Has provider been notified: No Discharging clinician: Keisha Small DS: Diagnosis Discharge Diagnosis (1) Sepsis: Qualifiers: Sepsis type: sepsis due to unspecified organism Sepsis acute organ dysfunction status: without acute organ dysfunction Qualified Code(s): A41.9 - Sepsis, unspecified organism (2) Cellulitis of foot, left: (3) Foot ulcer with necrosis of muscle: Qualifiers: Laterality: left Qualified Code(s): L97.523 - Non-pressure chronic ulcer of other part of left foot with necrosis of muscle (4) New onset a-fib: (5) Peripheral neuropathy: Qualifiers: Peripheral neuropathy type: polyneuropathy, unspecified Qualified Code(s): G62.9 - Polyneuropathy, unspecified (6) GERD without esophagitis: (7) Iron deficiency anemia: Qualifiers: Iron deficiency anemia type: unspecified iron deficiency Qualified Code(s): D50.9 - Iron deficiency anemia, unspecified (8) Hypokalemia: (9) Hypothyroidism (acquired): (10) Chronic right-sided CHF (congestive heart failure): DS: Summary Hospital Course Hospital Course: Please see progress note dated 07/11/24. Patient received 1 unit PRBC's and hemoglobin came up to 8.4. He was given Cardizem 300mg PO once and taken off the cardizem drip. His heart rate maintained <110. I spoke with patient and and the critical nature of his heart with surgery. I discussed it was standard of care to have cardiac work up, at minimum Echo and cardiac clearance prior to any surgery. We are not able to provide that here at [facility] today. Patient was amendable to transfer back to [facility] where he has had all his surgeries and prior cardiac care. I spoke with Dr. Chery, podiatry, who agreed to see and accept patient. I updated Dr. Ellis, podiatry here, on transfer of care and all parties were in agreement. Patient was transferred last night. Status at Discharge Functional status at discharge: bed bound Overall status at discharge: patient is not back to baseline Time Spent with Patient Time attestation: Total time spent providing and/or coordinating discharge services: Time spent: greater than 30 minutes Exam Narrative Exam Narrative: no changes to exam from progress note dated 07/11/24 Constitutional Vital Signs, click to edit/add: Last Vital Signs Temp 97.7 F 07/11/24 19:17 Pulse 105 H 07/11/24 21:18 Resp 18 07/11/24 21:18 BP 104/58 07/11/24 21:18 Pulse Ox 94 L 07/11/24 21:18 O2 Del Method Room Air 07/11/24 16:00 DS: Data Data Completed and Pending Labs on day of discharge: Labs from last 24 hours 07/11/24 07/10/24 07/10/24 14:52 16:38 13:05 Hgb 8.4 L Hct 25.4 L NT-Pro-B Natriuret Pep 5583.0 H* Urine Color Urine Clarity Urine pH Ur Specific [place] Urine Protein Urine Glucose (UA) Urine Ketones Urine Occult Blood Urine Nitrite Urine Bilirubin Urine Urobilinogen Ur Leukocyte Esterase Urine RBC Urine WBC Ur Squamous Epith Cells Urine Crystals Urine Bacteria Urine Casts Hyaline Casts Urine Mucus Ur Culture Indicated? Blood Type O Positive Antibody Screen Negative Crossmatch See Detail 07/10/24 12:30 Hgb Hct NT-Pro-B Natriuret Pep Urine Color Yellow Urine Clarity Clear Urine pH 5.5 Ur Specific [place] 1.020 Urine Protein Negative Urine Glucose (UA) Negative Urine Ketones Negative Urine Occult Blood Trace-i Urine Nitrite Positive A Urine Bilirubin Negative Urine Urobilinogen 0.2 Ur Leukocyte Esterase Negative Urine RBC 0-2 Urine WBC 0-2 A Ur Squamous Epith Cells Rare Urine Crystals None seen Urine Bacteria Small A Urine Casts Seen A Hyaline Casts Rare Urine Mucus None seen Ur Culture Indicated? Yes Blood Type Antibody Screen Crossmatch Discharge Plan Discharge Disposition: [facility] Condition: Good Discharge Date/Time: 07/11/24 21:25 Discharge location: [facility]
== END 2024-07-11 21:25 | disposition short-term general hospital (02) | DRG 872 ==
LOC: ER 14:31 → ICU 17:18
PROVIDERS: Admitting Provider Family Medicine; Emergency Provider Emergency Medicine; Visit Provider Family Medicine
DX: A41.01 Sepsis due to Methicillin susceptible Staphylococcus aureus (principal); L03.116 Cellulitis of left lower limb; L02.612 Cutaneous abscess of left foot; I42.9 Cardiomyopathy, unspecified; F10.988 Alcohol use, unspecified with other alcohol-induced disorder; M86.172 Other acute osteomyelitis, left ankle and foot; I27.20 Pulmonary hypertension, unspecified; D50.9 Iron deficiency anemia, unspecified; K21.9 Gastro-esophageal reflux disease without esophagitis; I48.91 Unspecified atrial fibrillation; L97.523 Non-pressure chronic ulcer of other part of left foot with necrosis of muscle; Z89.421 Acquired absence of other right toe(s); M62.50 Muscle wasting and atrophy, not elsewhere classified, unspecified site; E03.9 Hypothyroidism, unspecified; E87.6 Hypokalemia; G62.1 Alcoholic polyneuropathy; D64.9 Anemia, unspecified; I50.812 Chronic right heart failure
CPT/HCPCS: 36415; 36430; 71045; 73630; 73700; 80048; 80053; 80061; 81001; 83036; 83605; 83735; 83880; 84439; 84443; 84484; 85007; 85014; 85018; 85025; 85027; 85610; 85652; 85730; 86140; 86850; 86900; 86901; 86923; 87040; 87070; 87075; 87086; 87150; 87186; 93005; 96365; 96366; 96368; 96376; 99285; J1650; J2543; J3370; J3475; P9016